=== PATIENT | male | born 1940 | race Caucasian/White ===

== ENCOUNTER 2018-02-13 09:40 | Outpatient (CLI) | payer OTHER ==
[2018-02-13] MEDS ORDERED: Gadobenate Dimeglumine 529 MG/1 ML (20ML VIAL) ONE (13:14)
== END 2018-02-13 09:41 | disposition home or self-care (01) ==
LOC: BICMRI 09:40
PROVIDERS: ATTEND Family Medicine
DX: G91.9 Hydrocephalus, unspecified (principal); G93.89 Other specified disorders of brain; Z98.2 Presence of cerebrospinal fluid drainage device
CPT/HCPCS: 70553; A9579